=== PATIENT | female | born 1965 | race Caucasian/White ===

== ENCOUNTER 2018-04-06 03:31 | Emergency (ER) | payer BC, SELFPAY ==
[2018-04-06 03:34] VITALS: BP 133/84; PULSE 84; RESP 16; TEMP 36.5; O2SAT 100
[2018-04-06] MEDS: Lidocaine 5% Patch 1 PATCH TP (03:50)
[2018-04-06] MEDS: Acetaminophen 500 MG TAB 1000 MG PO (03:50)
[2018-04-06] MEDS: Diazepam 5 MG TAB PO (03:50)
[2018-04-06 04:05] LABS: Bilirubin Negative (Negative); Blood Moderate (Negative); Clarity Clear; Glucose Negative (Negative); Ketones Negative (Negative); Leukocyte Esterase Negative (Negative); Nitrite Negative (Negative); Specific Gravity >= 1.030 (1.005-1.025); Urobilinogen 0.2 EU/dL (Up TO 0.2); pH 5.5 (5-8)
[2018-04-06 04:12] LABS: Bacteria Rare HPF (Negative); C & S Indicated? No; Casts Negative LPF (Negative); Crystals Negative HPF (Negative); Epithelial Cells Rare HPF (Negative); Mucus Negative (Negative); WBC 0-2 HPF (0-5)
--- NOTE | 2018-04-06 04:16 | ED.GENADUL_ITS ---
Discharge Plan Disposition Patient Disposition: HOME Condition: Good Discharge Details Chief Complaint: Orthopedic Clinical Impression: Acute left flank pain Primary Care Provider: Jennifer Thurman ED Provider: Javier Campa Home Meds and New Rx's Prescriptions: New cyclobenzaprine 10 mg tablet 10 mg PO TID Qty: 30 RF: 0 acetaminophen [Mapap Extra Strength] 500 MG tablet 1,000 mg PO Q6H 5 Days Qty: 60 RF: 0 ibuprofen [Motrin IB] 200 MG tablet 600 mg PO Q6H 5 Days Qty: 60 RF: 0 hydrocodone-acetaminophen [[place]] 7.5-325 mg tablet 1 tab PO Q6H Qty: 5 RF: 0 No Action sertraline [Zoloft] 50 mg Tablet 1 tab PO DAILY RF: 0 citalopram 10 mg Tablet 10 mg PO PRN PRN (Reason: Anxiety) RF: 0 Discharge Instructions Instructions: Flank Pain (ED), Muscle Spasm (ED) Additional Instructions: Please take medications as directed. If you notice any worsening of your symptoms, or any new symptoms such as numbness or tingling in your groin, bowel or bladder incontinence, vomiting, diarrhea, fever, chills, shortness of breath, chest pain, numbness, weakness, or fainting , please return immediately to the emergency department for reevaluation. Please follow up with your primary care provider as soon as possible for reassessment and reevaluation. As always, it was a pleasure participating in your medical care today. Referrals: Jennifer Thurman [Primary Care Provider] - Medical Decision Making This is a 52-year-old female who presents with very atypical left hip/pelvic pain. Patient's pain began last night, it occurred while she was just sitting there. It is sharp and aching in nature and radiates to her groin which would be concerning for a urinary tract infection or urolithiasis however the patient's pain is a notable musculoskeletal component with reproducible tenderness over the left leg greater trochanter, improvement of symptoms with flexion of the hip worsening of symptoms with extension of the hip and external rotation. She has no history of kidney stones. Symptoms are certainly atypical. Differential includes a musculoskeletal component versus a kidney stone. We will evaluate with urinalysis, CT scan to evaluate for any fracture, kidney stone. We will Place Lidoderm patch, and give a muscle relaxant, as well as Tylenol. 5:[address] scan has returned and is negative for acute process. I did contact the radiologist who was no longer on shift, and instead spoke with the radiologist technical marketing consultant. I discussed the patient's clinical findings, he does not reevaluate for signs of small kidney stone, osseous abnormalities for the left hip, or other abnormalities. Upon their review they see no acute process or other acute abnormalities. Patient was given morphine and had near complete resolution of her symptoms however the pain has returned along afterwards. We did perform a laboratory workup and she does appear mildly dehydrated, but shows no other sign ificant abnormalities on lab. Patient now states that the pain radiates from her groin down her leg in the anterior component all the way to the calf. She denies any pain in her buttock, the posterior component. She has had sciatica in the past and states that this feels completely different than this. She describes it as a aching-like sensation. Repeat vascular exam continues to demonstrate brisk capillary refill, +2 dorsalis pedis and posterior tibial pulse bilaterally. Normal strength and movement aside for the previous aforementioned movements that worsen her pain. Patient's symptoms are notably atypical. Due to her persistent pain, the presentation, I did discuss with the patient going back for repeat CT scan to evaluate for potential though unlikely dissection. Family agrees with the plan for repeat imaging. We will get a CTA to rule out dissection or other acute vascular process. 7: 42 AM Reassessment the patient has near complete resolution of her symptoms after a dministration of Flexeril. We are still pending CTA results at this time. With complete resolution of her symptoms, if the CTA is negative I feel that she can be safely discharged home. Repeat clinical exam continues to show no signs of cauda equina syndrome, neurologic or vascular deficit of the lower extremities, acute surgical abdomen, or other significant abnormalities. I discussed with he r potential observation versus discharge and the patient feels ready to go home and is asking to go home. If the CT results are negative I feel she can be safely discharged with close follow-up with her PCP. Case will be signed out to my colleague Dr. Reynolds pending CT scan results. 8:[address] angios results are negative for acute process. Patient feeling much improved. Patient will be discharged with close follow-up. I spent greater than 15 minutes discussing return precautions and patient family understand. Patient feels comfortable with going home. I have extensively reviewed the treatment plan and discharge instructions with the patient and their family. I have addressed all patient concerns at this time. The patient and family was made aware of what symptoms to monitor for that would warrant a return to the emergency department. Discussed the plan with the patient and family, they demonstrate verbal understanding and agreement with our assessment and plan at this time. FINDINGS: Lower thorax: No acute findings. ABDOMEN: Liver: Normal. No mass. Gallbladder and bile ducts: Normal. No calcified stones. No ductal dilation. Pancreas: Normal. No ductal dilation. Spleen: Normal. No splenomegaly. Adrenals: Normal. No mass. Kidneys and ureters: Nonobstructing renal calculi. No obstructing urinary calculus or hydronephrosis. Stomach and bowel: Normal. No obstruction. No mucosal thickening. Appendix: No evidence of appendicitis. PELVIS: Bladder: Unremarkable as visualized. Reproductive: Unremarkable as visualized. ABDOMEN and PELVIS: Intraperitoneal space: Normal. No free air. No significant fluid collection. Bones/joints: No acute fracture. No dislocation. Soft tissues: Unremarkable. Vasculature: Normal. No abdominal aortic aneurysm. Lymph nodes: Normal. No enlarged lymph nodes. IMPRESSION: No acute finding. Thank you for allowing us to participate in the care of your patient. Dictated and Authenticated by: Valdo Mckeon MD COMPARISON: No relevant prior studies available. FINDINGS: Pulmonary arteries: There is no evidence for PE. Aorta: There is no evidence for thoracic aortic dissection or aneurysm. Lungs: Centrilobular emphysema is present. Pleural space: Normal. No pneumothorax. No pleural effusion. Heart: Normal. No cardiomegaly. No pericardial effusion. Lymph nodes: Unremarkable. No enlarged lymph nodes. Bones/joints: Unremarkable. No acute fracture. Soft tissues: Unremarkable. IMPRESSION: There is no evidence for thoracic aortic dissection or aneurysm. EXAM: CT Angiography Abdomen With Contrast EXAM DATE/TIME: 04/06/2018 5:50 AM CLINICAL HISTORY: 52 years old, female; Pain; Other: No chest pain; Other: Hip groin pain; Patient HX: Severe hip and groin pain worsening; Additional info: R/O dissection vs. Art comp. Images down through mid thigh per dr. Campa TECHNIQUE: Axial computed tomographic angiography images of the abdomen with intravenous contrast material, including non-contrast images if performed. MIP and/or 3D reconstructed images were created and reviewed. All CT scans at this facility use at least one of these dose optimization techniques: automated exposure control; mA and/or kV adjustment per patient size (includes targeted exams where dose is matched to clinical indication); or iterative reconstruction. CONTRAST: 85 ml of Omnipaque 350 administered intravenously. COMPARISON: No relevant prior studies available. FINDINGS: Lungs: Unremarkable. No consolidation. VASCULATURE: Aorta: There is no evidence for abdominal aortic aneurysm or dissection. Celiac trunk and mesenteric arteries: No occlusion or significant stenosis. Renal arteries: No occlusion or significant stenosis. Other arteries: No evidence for arterial compression ABDOMEN: Liver: Normal. No mass. Gallbladder and bile ducts: Normal. No calcified stones. No ductal dilation. Pancreas: Normal. No ductal dilation. Spleen: Normal. No splenomegaly. Adrenals: Normal. No mass. Kidneys and ureters: Normal. No hydronephrosis. Stomach and bowel: Unremarkable. No obstruction. No mucosal thickening. Intraperitoneal space: Unremarkable. No free air. No significant fluid collection. Bones/joints: Unremarkable. No acute fracture. No dislocation. Soft tissues: Unremarkable. Lymph nodes: Unremarkable. No enlarged lymph nodes. IMPRESSION: There is no evidence for abdominal aortic aneurysm or dissection. No evidence for arterial compression Dictated and Authenticated by: Dennis Ford MD. HPI General Date/Time Provider Initiated Documentation: 04/06/18 03:33 . HPI Narrative: This is a 52-year-old female with no significant past medical history who presents today for very atypical left hip and groin pain. 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 It gradually worsened throughout the night. Patient states that the pain goes from her left hip to her groin/genitals. She denies any vaginal discharge. The pain is better when the patient's hip is flexed at 90 degrees, also improved with movement, as well as improved with walking however it is worsened with external rotation at the hip and posterior movement of the hip. She denies any dysuria, hematuria or increase in urinary frequency. She denies any fever chills or vaginal discharge. She denies any trauma, fall, previous injury, previous fracture. She denies any numbness tingling or weakness. She denies any pain rating towards the thigh. She denies any history of kidney stones. She denies any systemic symptoms of fever, chills, vomiting or diarrhea. She has no other complaints or modifying factors at this time. She has taken Advil and Aleve this evening, however this is not improved her symptom. Related Data Home Medications Medication Instructions Recorded Confirmed acetaminophen [Mapap Extra 1,000 mg PO Q6H 5 Days #60 tab 04/06/18 Strength] citalopram 10 mg PO PRN PRN 04/06/18 04/06/18 cyclobenzaprine 10 mg PO TID #30 tab 04/06/18 hydrocodone-acetaminophen [[place]] 1 tab PO Q6H #5 tab 04/06/18 ibuprofen [Motrin Ib] 600 mg PO Q6H 5 Days #60 tab 04/06/18 sertraline [Zoloft] 1 tab PO DAILY 04/06/18 04/06/18 Previous Rx's Medication Instructions Recorded acetaminophen [Mapap Extra 1,000 mg PO Q6H 5 Days #60 tab 04/06/18 Strength] cyclobenzaprine 10 mg PO TID #30 tab 04/06/18 hydrocodone-acetaminophen [[place]] 1 tab PO Q6H #5 tab 04/06/18 ibuprofen [Motrin Ib] 600 mg PO Q6H 5 Days #60 tab 04/06/18 Allergies Allergy/AdvReac Type Severity Reaction Status Date / Time acetaminophen [From Percocet] AdvReac Intermediate Nausea Unverified 04/06/18 03:37 oxycodone [From Percocet] AdvReac Intermediate Nausea Unverified 04/06/18 03:37 General Stated Complaint: Orthopedic MINA: 3 Review of Systems Review of Systems All systems reviewed & are unremarkable except as noted in HPI and below PFSH Social History Smoking and Tabacco status: Current every day Exam Narrative Exam Narrative: 1.Const: Well-nourished, Well-developed, appearing stated age 2.Eyes: PERRL, no conjunctival injection, and symmetrical lids. 3.ENT: Atraumatic external nose and ears. Moist MM. Neck: Symmetric, trachea midline, No thyromegaly. 4.CVS: +S1/S2, No murmurs or gallops. Peripheral pulses 2+ and equal in all extremities. Brisk capillary refill in all extremities. 5.RESP: Unlabored respiratory effort. Clear to auscultation bilaterally. No wheezes rales or rhonchi 6.GI: Soft, Nontender/Nondistended, No hepatosplenomegaly. No guarding or rebound. 7.MSK: Normocephalic/Atraumatic, Extremities w/o deformity or ttp No cyanosis or clubbing, the patient demonstrates slight reproducible pain on palpation of her greater trochanter on the left. Worsening of pain with external rotation of the hip, is also worsening of pain with extension of the left hip improvement of the pain with flexion of the left hip. Palpation of the buttocks reveals no tenderness over the gluteus fe, minimus, or piriformis. Normal sensation throughout for the lower extremities, normal strength throughout. No midline tenderness to palpation over the CTLS spine. Normal ROM in flexion, extension, side bend, and rotation. Patient has +5 out of 5 strength in the lower extremities in dorsiflexion and plantarflexion, knee flexion and extension, hip flexion and extension. There is +2 over 2 dorsalis pedis pulses bilaterally. There is normal sensation to the skin with light touch at the foot, knee, and hip. Normal saddle sensation. Good sensation over the deep sural nerve area bilaterally. Rectal exam deferred. Reflexes are +2 over 4 in the patellar reflex bilaterally. +5 out of 5 strength in the medial, ulnar, radial nerve distribution bilaterally in the hands as well as intact light touch sensation to these dermatomes on the hands 8.Skin: Warm, Dry. No rashes or lesions. 9.Neuro: load out person II-XII grossly intact. Sensation grossly intact, no focal neurologic deficits. 10.Psych: (AAO) x3. Appropriate mood and affect Course Vital Signs Temperature 36.5 C 04/06/18 03:34 Pulse 84 04/06/18 03:34 Respiratory Rate 16 04/06/18 03:34 Blood Pressure 133/84 04/06/18 03:34 Pulse Oximetry 100 04/06/18 03:34 Temperature 36.5 C 04/06/18 03:34 Temperature Source Temporal Artery Scan 04/06/18 03:34 Pulse 84 04/06/18 03:34 Respiratory Rate 16 04/06/18 03:34 Respiratory Effort 04/06/18 03:39 Blood Pressure 133/84 04/06/18 03:34 Blood Pressure Position Standing 04/06/18 03:34 Pulse Oximetry 100 04/06/18 03:34 Oxygen Delivery Method Room Air 04/06/18 03:34 Oxygen Flow Rate 0 04/06/18 03:34 Pain Level 10 04/06/18 03:34 Lab/Test Results Lab/Test Results: Laboratory Tests Range/Units 04/06/18 03:45 Urine Color (Yellow) Yellow Urine Clarity Clear Urine pH (5-8) 5.5 Ur Specific [place] (1.005-1.025) >= 1.030 H Urine Protein (Negative) mg/dL Negative Urine Ketones (Negative) mg/dL Negative Urine Blood (Negative) Moderate H Urine Nitrite (Negative) Negative Urine Bilirubin (Negative) Negative Urine Urobilinogen (Up TO 0.2) EU/dL 0.2 Ur Leukocyte Esterase (Negative) Negative Urine RBC (0-2) 5-10 H Urine WBC (0-5) HPF 0-2 Ur Epithelial Cells (Negative) HPF Rare Urine Crystals (Negative) HPF Negative Urine Bacteria (Negative) HPF Rare Urine Casts (Negative) LPF Negative Urine Mucus (Negative) Negative Urine Other Car Lubricator Ur Culture Indicated? No Urine Glucose (Negative) mg/dL Negative
--- NOTE | 2018-04-06 04:20 | DI.CT_ITS ---
SYMPTOM/DIAGNOSIS: SEVERE LT HIP AND GROIN PAIN, ? DISSECTION VS AR COMP. ABDOMEN AND PELVIC CT: A noncontrast CT scan of the abdomen and pelvis was performed. Comparison is made with 05/04/10. The visualized lung bases are clear. Lack of IV contrast does limit evaluation of the abdominal and pelvic organs. The unenhanced liver, gallbladder, bile ducts, pancreas, spleen and adrenal glands are unremarkable. There are bilateral non obstructing renal calculi. The urinary bladder is intact. The reproductive organs are unremarkable. The bowel shows no evidence of obstruction or inflammation. No findings to suggest an acute appendicitis are present. The abdominal aorta is of normal caliber. No significant abdominal or pelvic adenopathy, ascites or pneumoperitoneum is present. No acute abnormality is seen in the bones. IMPRESSION: No evidence of an acute abdomen. CTA OF CHEST, ABDOMEN AND PELVIS: CT angiography was performed with multi slice acquisition and multi planar and 3D reconstruction. Comparison is made with earlier in the day. ABDOMEN AND PELVIS: The abdominal aorta is of normal caliber. No evidence of dissection is seen. The celiac axis, superior mesenteric and inferior mesenteric arteries are unremarkable. The renal arteries have a normal appearance. The liver is normal in size. No suspicious mass is seen. The portal and superior mesenteric veins and splenic veins appear patent. The gallbladder is negative. No biliary ductal dilatation is seen. The pancreas, spleen and adrenal glands are unremarkable. The kidneys show normal and symmetric enhancement. No suspicious solid renal mass or obstruction is identified. Non obstructing stones are seen bilaterally in the kidneys. There is a small cyst seen in the right kidney. The urinary bladder is intact. The reproductive organs are unremarkable. The bowel shows no evidence of obstruction or inflammation. No findings to suggest an acute appendicitis are present. No significant abdominal or pelvic adenopathy, ascites or pneumoperitoneum is seen. The bones are intact. IMPRESSION: No evidence of abdominal or pelvic arterial injury. No evidence of an acute abdomen. CHEST: The thoracic aorta is of normal caliber. No evidence of dissection or aneurysm. Heart size is within normal limits. No significant pericardial effusion is seen. The visualized pulmonary arteries show no filling defects to suggest embolic disease. No significant thoracic adenopathy is appreciated. No pleural effusion or pneumothorax is identified. Moderately severe emphysematous changes are present in the lungs. No focal consolidating infiltrates are seen. The tracheobronchial tree is unremarkable. The thoracic spine appears intact. IMPRESSION: No evidence of a thoracic aneurysm or dissection.
--- NOTE | 2018-04-06 04:26 | NUR.NOTE ---
Nursing Note: Acetaminophen 1,000mg & Diazepam 5mg given PO @ 0350. 1 Lidocaine 5% patch applied to left outer buttock. Unable to save on [facility] due to technical error message- ticket submitted to [facility].
--- NOTE | 2018-04-06 04:39 | DI.VRAD_ITS ---
EXAM: CT Abdomen and Pelvis Without Contrast EXAM DATE/TIME: 04/06/2018 3:45 AM CLINICAL HISTORY: 52 years old, female; Pain; Other: Left hip and groin pain; Patient HX: Left hip and groin pain starting yesterday and more severe now. TECHNIQUE: Axial computed tomography images of the abdomen and pelvis without contrast. All CT scans at this facility use at least one of these dose optimization techniques: automated exposure control; mA and/or kV adjustment per patient size (includes targeted exams where dose is matched to clinical indication); or iterative reconstruction. Coronal and sagittal reformatted images were created and reviewed. COMPARISON: No relevant prior studies available. FINDINGS: Lower thorax: No acute findings. ABDOMEN: Liver: Normal. No mass. Gallbladder and bile ducts: Normal. No calcified stones. No ductal dilation. Pancreas: Normal. No ductal dilation. Spleen: Normal. No splenomegaly. Adrenals: Normal. No mass. Kidneys and ureters: Nonobstructing renal calculi. No obstructing urinary calculus or hydronephrosis. Stomach and bowel: Normal. No obstruction. No mucosal thickening. Appendix: No evidence of appendicitis. PELVIS: Bladder: Unremarkable as visualized. Reproductive: Unremarkable as visualized. ABDOMEN and PELVIS: Intraperitoneal space: Normal. No free air. No significant fluid collection. Bones/joints: No acute fracture. No dislocation. Soft tissues: Unremarkable. Vasculature: Normal. No abdominal aortic aneurysm. Lymph nodes: Normal. No enlarged lymph nodes. IMPRESSION: No acute finding. Dictated and Authenticated by: Valdo Mckeon MD. Ordering:SHAILESH Herrera MD
[2018-04-06] MEDS: Ondansetron 4 MG/2 ML VIAL IVP (04:50)
[2018-04-06] MEDS: MORPHine 10 MG/ML VIAL 4 MG IVP ×2 (04:51→05:45)
[2018-04-06 05:02] LABS: Abs Immature Grans 0.02 k/cumm (0.0-0.09); Absolute Basophil Count 0.02 k/cumm (0.0-0.2); Absolute Eosinophil Count 0.07 k/cumm (0.0-0.7); Absolute Monocyte Count 0.65 k/cumm (0.11-0.7); Absolute Neutrophil Count 9.24 k/cumm (1.2-6.7); Basophils % 0.2; Eosinophils % 0.6; HCT 43.8 % (36.0-46.0); HGB 14.6 g/dL (12.0-15.5); Immature Grans % 0.2; Mean Corp. HGB Concentration 33.3 g/dL (32.0-36.0); Mean Corpuscular Hemoglobin 31.7 pg (27.0-33.0); Mean Platelet Volume 11.2 fL (8.0-11.0); Monocytes % 5.3; Neutrophils % 75.7; Platelet Count 256 x1000/uL (130-400); RBC 4.61 m/cumm (4.00-5.20); RBC Distribution Width 12.1 % (11.7-14.6); White Blood Cell Count 12.21 k/cumm (4.4-10.8)
[2018-04-06 05:05] VITALS: BP 110/79; PULSE 60; RESP 16; TEMP 36.4; O2SAT 95
[2018-04-06 05:18] LABS: ALT 20 U/L (12-78); AST 7 U/L (15-37); Albumin 4.3 g/dL (3.4-5.0); Alkaline Phosphatase 88 U/L (46-116); Anion Gap 8.1 mmol/L (3-11); BUN 21 mg/dL (7-18); Bilirubin, Total 0.2 mg/dL (0.2-1.0); CO2 27.9 mmol/L (21.0-32.0); CREATININE 0.94 mg/dL (0.55-1.02); Calcium 9.2 mg/dL (8.5-10.1); Chloride 103 mmol/L (98-107); Glucose 107 mg/dL (70-100); Potassium 4.3 mmol/L (3.5-5.1); Sodium 139 mmol/L (136-145); Total Protein 7.3 g/dL (6.4-8.2)
[2018-04-06] MEDS: Normal Saline 1,000 ML 1000 ML IV (05:34)
[2018-04-06] MEDS: Cyclobenzaprine 10 MG TAB PO (05:44)
[2018-04-06] MEDS: Omnipaque 350 MG/ML 100 ML BTL IJ (06:27)
[2018-04-06] MEDS: Normal Saline Flush 10 ML SYR IVP (06:30)
--- NOTE | 2018-04-06 08:01 | DI.VRAD_ITS ---
EXAM: CT Angiography Chest With Contrast EXAM DATE/TIME: 04/06/2018 5:50 AM CLINICAL HISTORY: 52 years old, female; Pain; Other: No chest pain; Other: Hip groin pain; Patient HX: Severe hip and groin pain worsening; Additional info: R/O dissection vs. Art comp. Images down through mid thigh per dr. Campa TECHNIQUE: Axial computed tomographic angiography images of the chest with intravenous contrast using CT angiography protocol. All CT scans at this facility use at least one of these dose optimization techniques: automated exposure control; mA and/or kV adjustment per patient size (includes targeted exams where dose is matched to clinical indication); or iterative reconstruction. MIP reconstructed images were created and reviewed. CONTRAST: 85 ml of Omnipaque 350 administered intravenously. COMPARISON: No relevant prior studies available. FINDINGS: Pulmonary arteries: There is no evidence for PE. Aorta: There is no evidence for thoracic aortic dissection or aneurysm. Lungs: Centrilobular emphysema is present. Pleural space: Normal. No pneumothorax. No pleural effusion. Heart: Normal. No cardiomegaly. No pericardial effusion. Lymph nodes: Unremarkable. No enlarged lymph nodes. Bones/joints: Unremarkable. No acute fracture. Soft tissues: Unremarkable. IMPRESSION: There is no evidence for thoracic aortic dissection or aneurysm. EXAM: CT Angiography Abdomen With Contrast EXAM DATE/TIME: 04/06/2018 5:50 AM CLINICAL HISTORY: 52 years old, female; Pain; Other: No chest pain; Other: Hip groin pain; Patient HX: Severe hip and groin pain worsening; Additional info: R/O dissection vs. Art comp. Images down through mid thigh per dr. Campa TECHNIQUE: Axial computed tomographic angiography images of the abdomen with intravenous contrast material, including non-contrast images if performed. MIP and/or 3D reconstructed images were created and reviewed. All CT scans at this facility use at least one of these dose optimization techniques: automated exposure control; mA and/or kV adjustment per patient size (includes targeted exams where dose is matched to clinical indication); or iterative reconstruction. CONTRAST: 85 ml of Omnipaque 350 administered intravenously. COMPARISON: No relevant prior studies available. FINDINGS: Lungs: Unremarkable. No consolidation. VASCULATURE: Aorta: There is no evidence for abdominal aortic aneurysm or dissection. Celiac trunk and mesenteric arteries: No occlusion or significant stenosis. Renal arteries: No occlusion or significant stenosis. Other arteries: No evidence for arterial compression ABDOMEN: Liver: Normal. No mass. Gallbladder and bile ducts: Normal. No calcified stones. No ductal dilation. Pancreas: Normal. No ductal dilation. Spleen: Normal. No splenomegaly. Adrenals: Normal. No mass. Kidneys and ureters: Normal. No hydronephrosis. Stomach and bowel: Unremarkable. No obstruction. No mucosal thickening. Intraperitoneal space: Unremarkable. No free air. No significant fluid collection. Bones/joints: Unremarkable. No acute fracture. No dislocation. Soft tissues: Unremarkable. Lymph nodes: Unremarkable. No enlarged lymph nodes. IMPRESSION: There is no evidence for abdominal aortic aneurysm or dissection. No evidence for arterial compression Dictated and Authenticated by: Dennis Ford MD. Ordering:SHAILESH Herrera MD
[2018-04-06 08:18] VITALS: BP 113/54; PULSE 49; RESP 12; TEMP 36.6; O2SAT 99
== END 2018-04-06 08:20 | disposition home or self-care (01) ==
PROVIDERS: Emergency Provider Student in an Organized Health Care Education/Training Program; PCP Nurse Practitioner
DX: M25.552 Pain in left hip (principal); R10.32 Left lower quadrant pain; E86.0 Dehydration
CPT/HCPCS: 36415; 71275; 74175; 80053; 96361; 96374; 96375; 96376; 99285; 74176; 81003; 81015; 85025; 99284; J2270; J2405; J3490

== ENCOUNTER 2018-05-03 09:08 | Emergency (ER) | payer BC, SELFPAY ==
[2018-05-03] VITALS (10 sets, daily range): BP systolic 113–119; BP diastolic 66–82; PULSE 58–83; RESP 16–20; TEMP 36.1–36.8; O2SAT 94–100
--- NOTE | 2018-05-03 09:41 | W.ED.GENAD ---
Discharge Plan Disposition Patient Disposition: HOME Condition: Improving Discharge Details Chief Complaint: FlankPain Clinical Impression: Nephrolithiasis, Vasovagal syncope Primary Care Provider: Jennifer Thurman ED Provider: Brenda Lennon Home Meds and New Rx's Prescriptions: New tamsulosin [Flomax] 0.4 mg capsule 0.4 mg PO DAILY 10 Days Qty: 10 RF: 0 hydrocodone-acetaminophen 5-325 mg tablet 1 tab PO Q6H PRN (Reason: pain) Qty: 7 RF: 0 Continued sertraline [Zoloft] 50 mg Tablet 1 tab PO DAILY RF: 0 acetaminophen [Tylenol Arthritis Pain] 650 mg Tablet Extended Release 2 tab PO PRN PRNRF: 0 Discharge Instructions Instructions: Kidney Stones (ED), Syncope (ED) Additional Instructions: Drink plenty of water to help with flushing your kidneys. Take the Flomax as directed. Alternate Tylenol and Motrin as needed and directed for pain. Take the vicodin for pain not relieved with Tylenol or Motrin. Be careful while taking the Vicodin as it has Tylenol in it. Limit your amount of Tylenol to no more than 3000 mg daily. You will receive a call from care management regarding a follow-up appointment with urology. Return immediately to the emergency department any worsening or new concerning symptoms. Discharge Data Discharge Physician: Brenda Lennon Medical Decision Making 52yo female with a history of anxiety and depression who presents with right flank pain with radiation to right groin since last night. Pt is post-menopausal. She was found to have bilateral renal calculi on CT abdomen and pelvis for an unrelated complaint 1 month ago. Vitals within normal limits. Patient appears nontoxic. She has right CVA tenderness. Abdomen soft and nontender. Will place an IV, labs, urinalysis, fluids, CT renal colic and give a dose of Toradol and Zofran and reassess. 1030 --patient feels much better. Pain is significantly improved. CT notes a 2 mm stone in the right UVJ. Labs reviewed and noted a white blood cell count of 12, normal creatinine, UA notes 10-20 WBCs, moderate bacteria, few epis, negative leukocyte and negative nitrite. 1045 --discussed with Dr. Arteaga -with follow-up with patient as an outpatient. Will give a dose of Flomax here and send with prescription. Patient was instructed to alternate Tylenol and Motrin for pain. She is requesting stronger pain medication upon discharge if pain worsens. She states she has tolerated hydrocodone in the past. Will place patient on care management list to help arrange for an appointment with urology within the next week. She is instructed return here immediately with any worsening symptoms. Patient's syncopal episode just prior to arrival was at the onset of significant pain and appears likely consistent with vasovagal syncope. An EKG was done which noted a rate of 54, sinus and no acute ST findings. Medical Records Medical records reviewed: Yes I reviewed the patient's medical records. Lab Data Lab results reviewed: Yes I reviewed the patient's lab results. 05/03/18 10:03 Urine - Reflex from Ua Urine Culture - Pending Laboratory Tests Range/Units 05/03/18 05/03/18 05/03/18 09:48 09:48 10:03 WBC (4.4-10.8) k/cumm 12.51 H RBC (4.00-5.20) m/cumm 4.46 Hgb (12.0-15.5) g/dL 14.1 Hct (36.0-46.0) % 42.0 MCV (80-95) fL 94.2 MCH (27.0-33.0) pg 31.6 MCHC (32.0-36.0) g/dL 33.6 RDW (11.7-14.6) % 12.5 Plt Count (130-400) x1000/uL 274 MPV (8.0-11.0) fL 10.9 Immature Gran % 0.2 Neutrophils % 85.8 Lymphocytes % 9.6 Monocytes % 3.9 Eosinophils % 0.3 Basophils % 0.2 Absolute Neutrophils (1.2-6.7) k/cumm 10.73 H Absolute Lymphocytes (1.2-3.4) k/cumm 1.20 Absolute Monocytes (0.11-0.7) k/cumm 0.49 Absolute Eosinophils (0.0-0.7) k/cumm 0.04 Absolute Basophils (0.0-0.2) k/cumm 0.03 Sodium (136-145) mmol/L 140 Potassium (3.5-5.1) mmol/L 4.1 Chloride (98-107) mmol/L 103 Carbon Dioxide (21.0-32.0) mmol/L 28.1 Anion Gap (3-11) mmol/L 8.9 BUN (7-18) mg/dL 16 Creatinine (0.55-1.02) mg/dL 0.91 Estimated GFR/1.73 m2 (mL/min/1.73m2) >= 60.00 Glucose (70-100) mg/dL 119 H Calcium (8.5-10.1) mg/dL 9.0 Total Bilirubin (0.2-1.0) mg/dL 0.3 AST (15-37) U/L 11 L ALT (12-78) U/L 20 Alkaline Phosphatase (46-116) U/L 75 Total Protein (6.4-8.2) g/dL 6.8 Albumin (3.4-5.0) g/dL 3.8 Urine Color (Yellow) Yellow Urine Clarity Clear Urine pH (5-8) 6.5 Ur Specific [place] (1.005-1.025) 1.025 Urine Protein (Negative) mg/dL Negative Urine Ketones (Negative) mg/dL Negative Urine Blood (Negative) Moderate H Urine Nitrite (Negative) Negative Urine Bilirubin (Negative) Negative Urine Urobilinogen (Up TO 0.2) EU/dL 0.2 Ur Leukocyte Esterase (Negative) Negative Urine RBC (0-2) >50 H Urine WBC (0-5) HPF 10-20 Ur Epithelial Cells (Negative) HPF Few Urine Crystals (Negative) HPF Negative Urine Bacteria (Negative) HPF Moderate Urine Casts (Negative) LPF Negative Urine Mucus (Negative) Trace Ur Culture Indicated? Yes Urine Glucose (Negative) mg/dL Negative ECG Data Attestation: I personally reviewed and interpreted this ECG (s) as follows: Interpretation: Rate of 54, sinus, no acute ST elevation or depression. QTc 430. QRS 92. HPI General Mode of arrival: ambulatory. Date/Time Provider Initiated Documentation: 05/03/18 09:16. Limitations to Documentation: no limitations. Information obtained by: patient. HPI Narrative: Patient is a 52-year-old female who presents with right flank pain since last night. Patient states her pain radiates into her right groin. She states the pain was 10/10 this morning, and is now somewhat improved. Patient states she passed out in the car due to the severe pain just prior to arrival in the parking lot. She denies any injury when this occurred. Patient states she was seen here last month for back pain and was found to have bilateral renal calculi. She denies any known history of kidney stones. She states yesterday her urine was pink but denies any dysuria, urinary frequency or urgency. She admits to nausea but denies any vomiting. She denies any fever, injury, leg pain, rash. Related Data Home Medications Medication Instructions Recorded Confirmed sertraline [Zoloft] 1 tab PO DAILY 04/06/18 05/03/18 acetaminophen [Tylenol Arthritis 2 tab PO PRN PRN 05/03/18 05/03/18 Pain] hydrocodone-acetaminophen 1 tab PO Q6H PRN #7 tab 05/03/18 tamsulosin [Flomax] 0.4 mg PO DAILY 10 Days #10 cap 05/03/18 Previous Rx's Medication Instructions Recorded hydrocodone-acetaminophen 1 tab PO Q6H PRN #7 tab 05/03/18 tamsulosin [Flomax] 0.4 mg PO DAILY 10 Days #10 cap 05/03/18 Allergies Allergy/AdvReac Type Severity Reaction Status Date / Time acetaminophen [From Percocet] AdvReac Intermediate Nausea Unverified 05/03/18 09:14 oxycodone [From Percocet] AdvReac Intermediate Nausea Unverified 05/03/18 09:14 General Stated Complaint: FlankPain MINA: 3 Review of Systems Review of Systems All systems reviewed & are unremarkable except as noted in HPI and below Constitutional Reports as per HPI, Denies chills and Denies fever(s) Eyes Denies blurry vision ENT Denies dizziness, Denies sore throat and Denies throat swelling Cardiovascular Denies chest pain and Denies dyspnea Respiratory Denies cough and Denies dyspnea Gastrointestinal Denies abdominal pain, Denies diarrhea, Reports nausea and Denies vomiting Genitourinary Denies hematuria, Denies dysuria and Reports flank pain Musculoskeletal Denies back pain and Denies numbness Integumentary/Breasts Denies lesions and Denies rash Neurologic Denies dizziness, Denies focal weakness and Denies numbness Allergic/Immunologic Denies throat swelling [facility] Medical History Lumbar disc herniation (Acute) Anxiety (Chronic) Depression (Chronic) Surgical History H/O shoulder surgery (Chronic) Social History Smoking and Tabacco status: Current every day alcohol intake: current alcohol intake frequency: a few times a month substance use type: does not use Exam Const General: cooperative, healthy appearing and no acute distress HENMT Head: normal to inspection Face and sinus: normal facial exam Eyes General: appearance normal, both eyes and all related structures Pupils: PERRL EOM: EOM intact bilaterally Neck Neck: normal visual inspection and No submandibular swelling Lymphatic: no lymphadenopathy noted Chest Chest: normal inspection of the chest and no tenderness Resp Effort & Inspection: normal respiratory effort and able to speak in complete sentences Auscultation: clear to auscultation bilaterally Cardio Rate: regular rate Rhythm: regular rhythm GI Inspection: normal to inspection Palpation: soft, not firm, not rigid and nontender Auscultation: normal bowel sounds Back/Spine/Pelvis Back: CVA tenderness (Right side) Thoracic/Lumbar Spine: thoracic and lumbar spine normal to inspection Skin General skin exam: no rashes or lesions noted Neuro General: alert, awake and oriented x3 Cognition: normal cognition Speech: speech normal Motor: muscle tone normal throughout Sensory Exam: no sensory deficits noted Extrem General: normal to inspection, full ROM, normal capillary refill, no calf tenderness bilaterally and no edema Psych Appearance: grossly normal Mental Status: mental status grossly normal Speech and Movement: speech and movement normal Affect: normal affect Course Vital Signs Temperature 98.2 F 05/03/18 09:12 Pulse 83 05/03/18 09:12 Respiratory Rate 20 05/03/18 09:12 Blood Pressure 113/79 05/03/18 09:12 Pulse Oximetry 97 05/03/18 09:12 Temperature 98.2 F 05/03/18 09:12 Temperature Source Temporal Artery Scan 05/03/18 09:12 Pulse 83 05/03/18 09:12 Respiratory Rate 20 05/03/18 09:12 Respiratory Effort Non-Labored 05/03/18 09:12 Blood Pressure 113/79 05/03/18 09:12 Blood Pressure Position Sitting 05/03/18 09:12 Pulse Oximetry 97 05/03/18 09:12 Oxygen Delivery Method Room Air 05/03/18 09:12 Oxygen Flow Rate 0 05/03/18 09:12 Pain Level 10 05/03/18 09:12
--- NOTE | 2018-05-03 09:44 | DI.CT_ITS ---
SYMPTOMS/DIAGNOSIS: RT FLANK PAIN, H/O RENAL CALCULI, ? NEPHROLITHIASIS CT SCAN OF THE ABDOMEN AND PELVIS: Renal colic CT was performed according to protocol. Comparison is 04/06/18. The visualized lung bases are clear. Lack of IV contrast does limit evaluation of the abdominal and pelvic organs. The unenhanced visualized portions of the liver, spleen, pancreas, gallbladder, bile ducts and adrenal glands are grossly unremarkable. There are two nonobstructing stones seen in the lower pole of the left kidney. The larger measures 0.4 cm. No ureterolithiasis or hydronephrosis is present on the left. There is a 1 mm nonobstructing stone in the lower pole of the right kidney. There is a 2 mm stone at the right ureterovesical junction causing moderate severe hydronephrosis. The urinary bladder is intact. The reproductive organs are unremarkable. There is atherosclerosis of the abdominal aorta but no aneurysmal dilatation. No significant abdominal or pelvic adenopathy, ascites or pneumoperitoneum is seen. The bowel shows no evidence of obstruction or inflammation. No findings to suggest an acute appendicitis are present. No acute osseous abnormality is identified. IMPRESSION: 1. 2 mm right UVJ stone causing moderate hydronephrosis. 2. Bilateral nephrolithiasis. The findings were discussed with the emergency department on the date of the examination.
[2018-05-03] MEDS: Normal Saline Flush 10 ML SYR IVP (09:48)
[2018-05-03] MEDS: Normal Saline 1,000 ML 1000 ML IV (09:57)
[2018-05-03 10:02] LABS: Abs Immature Grans 0.02 k/cumm (0.0-0.09); Absolute Basophil Count 0.03 k/cumm (0.0-0.2); Absolute Eosinophil Count 0.04 k/cumm (0.0-0.7); Absolute Monocyte Count 0.49 k/cumm (0.11-0.7); Absolute Neutrophil Count 10.73 k/cumm (1.2-6.7); Basophils % 0.2; Eosinophils % 0.3; HGB 14.1 g/dL (12.0-15.5); Immature Grans % 0.2; Lymphocytes % 9.6; Mean Corp. HGB Concentration 33.6 g/dL (32.0-36.0); Mean Corpuscular Hemoglobin 31.6 pg (27.0-33.0); Mean Corpuscular Volume 94.2 fL (80-95); Mean Platelet Volume 10.9 fL (8.0-11.0); Monocytes % 3.9; Neutrophils % 85.8; Platelet Count 274 x1000/uL (130-400); RBC 4.46 m/cumm (4.00-5.20); RBC Distribution Width 12.5 % (11.7-14.6); White Blood Cell Count 12.51 k/cumm (4.4-10.8)
[2018-05-03 10:16] LABS: Bilirubin Negative (Negative); Blood Moderate (Negative); Clarity Clear; Glucose Negative (Negative); Ketones Negative (Negative); Leukocyte Esterase Negative (Negative); Nitrite Negative (Negative); Specific Gravity 1.025 (1.005-1.025); Urobilinogen 0.2 EU/dL (Up TO 0.2); pH 6.5 (5-8)
[2018-05-03 10:20] LABS: ALT 20 U/L (12-78); AST 11 U/L (15-37); Albumin 3.8 g/dL (3.4-5.0); Alkaline Phosphatase 75 U/L (46-116); Anion Gap 8.9 mmol/L (3-11); BUN 16 mg/dL (7-18); Bilirubin, Total 0.3 mg/dL (0.2-1.0); CO2 28.1 mmol/L (21.0-32.0); CREATININE 0.91 mg/dL (0.55-1.02); Chloride 103 mmol/L (98-107); Glucose 119 mg/dL (70-100); Potassium 4.1 mmol/L (3.5-5.1); Sodium 140 mmol/L (136-145); Total Protein 6.8 g/dL (6.4-8.2)
[2018-05-03] MEDS: Ondansetron 4 MG/2 ML VIAL IVP (10:27)
[2018-05-03] MEDS: Ketorolac 30 MG/ML VIAL IVP (10:27)
[2018-05-03 10:37] LABS: Bacteria Moderate HPF (Negative); Casts Negative LPF (Negative); Crystals Negative HPF (Negative); Epithelial Cells Few HPF (Negative); Mucus Trace (Negative); RBC >50 (0-2)
[2018-05-03 10:38] LABS: C & S Indicated? Yes
[2018-05-03] MEDS: Tamsulosin 0.4 MG CAPCR PO (11:00)
--- NOTE | 2018-05-03 14:24 | PDOC.ERCMPRO ---
Care Management Progress Note 05/03-Dr. Lennon requested assistance with a urology f/u for kidney stones. Dr. Arteaga aware of patient. Referral faxed to Urology this afternoon.
== END 2018-05-03 11:35 | disposition home or self-care (01) ==
PROVIDERS: Emergency Provider Physician Assistant; PCP Nurse Practitioner
DX: R55 Syncope and collapse (principal); N20.0 Calculus of kidney; Z87.442 Personal history of urinary calculi
CPT/HCPCS: 80053; 96360; 96375; 99285; 74176; 81003; 81015; 85025; 87086; 99284; J1885; J2405

== ENCOUNTER 2018-12-18 13:05 | Emergency (ER) | payer BC, SELFPAY ==
[2018-12-18 13:12] VITALS: PULSE 88; RESP 18; TEMP 36.6; O2SAT 94
[2018-12-18 13:55] VITALS: RESP 18
[2018-12-18] MEDS: Albuterol/Ipratropium 3 ML UPD VIAL UPD (13:55)
[2018-12-18 14:06] VITALS: PULSE 64; RESP 1; RESP 16; O2SAT 93
--- NOTE | 2018-12-18 14:11 | ED.GENADUL_ITS ---
Discharge Plan Disposition Patient Disposition: HOME Condition: Good Discharge Details Chief Complaint: RespSymp Clinical Impression: Upper respiratory infection, Bronchitis Primary Care Provider: Jennifer Thurman ED Provider: Bailey Caruso Home Meds and New Rx's Prescriptions: New azithromycin 250 mg tablet See Rx Instructions .ROUTE .COMPLEX Qty: 6 RF: 0 albuterol sulfate [Proventil HFA] 90 mcg/actuation HFA aerosol inhaler 2 puff IH Q6H PRN (Reason: shortness of breath or wheezing) Qty: 8 RF: 0 benzonatate [Tessalon Perles] 100 mg capsule 100 mg PO TID PRN (Reason: cough) Qty: 10 RF: 0 No Action sertraline [Zoloft] 50 mg Tablet 1 tab PO DAILY RF: 0 citalopram [Celexa] 10 mg Tablet 10 mg PO DAILY RF: 0 cholecalciferol (vitamin D3) [Vitamin D3] 1,000 unit Capsule RF: 0 rosuvastatin [Crestor] 10 mg Tablet 20 mg PO DAILY RF: 0 vitamin H05-[id number] acid 1,000-400 mcg Lozenge SUBLINGUAL RF: 0 Discharge Instructions Instructions: Acute Bronchitis (ED) Additional Instructions: Drink plenty of fluids. Next and consider humidifier by bedside. Increase vitamin C. Use Tylenol for soreness if needed. Use inhaler as prescribed as well as antibiotic. Rest activities as tolerated. Recheck with primary care doctor if not improving in the next 2 to 3 days. Return sooner for any worsening or concerns if needed or for alarming symptoms as discussed Discharge Data Discharge Date/Time-TO BE ENTERED AT DEPARTURE: 12/18/18 14:27 Medical Decision Making This is a 53-year-old woman who presents for 1 week of viral type symptoms. Began with nasal congestion, sore throat and coughing. Patient reports cough is now more bothersome, increasing malaise and ill feeling. No measured fever but does report cough is worsening associated with mild wheezing. Patient offered chest x-ray to rule out pneumonia however declines at this time would prefer antibiotic treatment and avoidance of radiation. Patient was provided a DuoNeb which did reportedly significantly improve her symptoms. Patient will be provided antibiotic, inhaler as well as cough medication for home. Patient provided azithromycin. In conjunction with citalopram she is previously prescribed this is a risk of QTC prolongation however previous EKG does not reveal any QTC prolongation. The patient was stable and requested discharge. Prior to discharge, my usual and customary return precautions were reviewed with the patient - this included follow-up instructions and reasons to return to the Emergency Department if conditions worsens, does not improve as expected, or other new concerns arise. HPI General Date/Time Provider Initiated Documentation: 12/18/18 13:47 . HPI Narrative: This is a 53-year-old woman who presents to the emergency room for 1 week of illness. Patient reports 1 week of nasal congestion, bilateral ear pain, sinus pain and pressure, sore throat and cough. productive cough present, reportedly green sputum. Patient reports wheezing and coughing fits which are quite bothersome. Patient having difficulty catching her breath. Patient denies associated chest or back pain. Denies abdominal pain, nausea, vomiting or diarrhea. Patient does admit to widespread body ache and mild fatigue. No measured fever or chills. Patient is concerned with the possibility of pneumoni a given her persistence of illness.. Related Data Home Medications Medication Instructions Recorded Confirmed sertraline [Zoloft] 1 tab PO DAILY 04/06/18 12/18/18 albuterol sulfate [Proventil HFA] 2 puff IH Q6H PRN #8 gm 12/18/18 azithromycin See Rx Instructions .ROUTE 12/18/18 .COMPLEX #6 tab benzonatate [Tessalon Perles] 100 mg PO TID PRN #10 cap 12/18/18 cholecalciferol (vitamin D3) unit 12/18/18 [Vitamin D3] citalopram [Celexa] 10 mg PO DAILY 12/18/18 12/18/18 rosuvastatin [Crestor] 20 mg PO DAILY 12/18/18 12/18/18 vitamin [id number] acid nilo SUBLINGUAL 12/18/18 Previous Rx's Medication Instructions Recorded albuterol sulfate [Proventil HFA] 2 puff IH Q6H PRN #8 gm 12/18/18 azithromycin See Rx Instructions .ROUTE 12/18/18 .COMPLEX #6 tab benzonatate [Tessalon Perles] 100 mg PO TID PRN #10 cap 12/18/18 Allergies Allergy/AdvReac Type Severity Reaction Status Date / Time oxycodone [From Percocet] AdvReac Intermediate Nausea Unverified 05/03/18 09:14 General Stated Complaint: RespSymp MINA: 4 Review of Systems All systems reviewed & are unremarkable except as noted in HPI and below Constitutional Constitutional: Denies chills, Denies fatigue, Denies fever(s) and Reports headache(s) ENT Ears, Nose, Mouth, and Throat: Denies vertigo, Denies dizziness, Denies ear discharge, Reports otalgia, Reports headache(s), Reports nasal congestion, Reports post nasal drip, Reports sinus pain, Reports sinus pressure and Reports sore throat Cardiovascular Cardiovascular: Denies dyspnea on exertion Respiratory Respiratory: Reports cough, Denies dyspnea on exertion and Reports wheezing Genitourinary Genitourinary: Denies dysuria and Denies urinary urgency Neurologic Neurologic: Denies vertigo, Denies dizziness and Reports headache(s) Endocrine Endocrine: Denies fatigue Allergic/Immunologic Allergic/Immunologic: Reports wheezing [facility] Medical History Anxiety (Chronic) Depression (Chronic) Lumbar disc herniation (Acute) Social History Smoking/Tobacco Use Status: Current every day Alcohol Intake: current Alcohol Intake frequency: a few times a month Drug use: Never Substance use type: does not use Do you feel safe at home: Yes Do you feel safe in your relationship?: Yes Exam Narrative Exam Narrative: CONST: Healthy appearing patient, in no acute distress. Well hydrated. Alert and alert. HENMT: Head nomocephalic, normal to inspection. Atraumatic. Hearing grossly normal. Mild effusion in the right ear, minimal in the left. Mild erythema of the TMs bilaterally. Mild pharyngeal erythema without obvious uvula involvement. No exudates. EYES: General normal appearance. Alignment normal. Eyelids normal. Conjunctiva normal. NECK: Normal visual inspection. FROM. Trachea midline. No Midline tenderness. Cervical lymphadenopathy present CHEST: Normal insepection of the chest. RESP: Normal respiratory effort. Speaking full sentences. No cough. No audible wheezing. No retractions. Breath sounds are full bilaterally however scattered wheezing is present throughout the breath rodriguez. No obvious rales or rhonchi. Bronchospastic cough CARDIO: No JVD. No murmurs or rubs. Regular rate and rhythm. SKIN: Normal. Dry. No rashes. NEURO: Alert and awake. Speech clear. PSYCH: Normal affect. Cooperative. Course Vital Signs Vital signs: Vital Signs Temperature 36.6 C 12/18/18 13:12 Pulse 88 12/18/18 13:12 Respiratory Rate 18 12/18/18 13:12 Pulse Oximetry 94 L 12/18/18 13:12 Temperature 36.6 C 12/18/18 13:12 Pulse 64 12/18/18 14:06 Respiratory Rate 16 12/18/18 14:06 Respiratory Effort 12/18/18 13:29 Respiratory Depth Normal 12/18/18 13:29 Blood Pressure Position Supine 12/18/18 13:12 Pulse Oximetry 93 L 12/18/18 14:06 Oxygen Delivery Method Room Air 12/18/18 13:55 Oxygen Flow Rate 0 12/18/18 13:55 Pain Level 0 12/18/18 13:12
== END 2018-12-18 14:27 | disposition home or self-care (01) ==
PROVIDERS: Emergency Provider Physician Assistant; PCP Nurse Practitioner
DX: J06.9 Acute upper respiratory infection, unspecified (principal); J20.9 Acute bronchitis, unspecified
CPT/HCPCS: 94640; 99283; J7620

== ENCOUNTER 2021-07-15 22:55 | Emergency (ER) | payer BC, SELFPAY ==
[2021-07-15] VITALS (17 sets, daily range): BP systolic 122–134; BP diastolic 73–94; PULSE 53–72; RESP 10–23; TEMP 36.7; O2SAT 92–98
--- NOTE | 2021-07-15 22:45 | RT.EKG_ITS ---
APPROVED REPORT Exam: Resting ECG Reason for Exam: chest pain Patient Location: E HR:75 bpm ECG Measurements Heart Rate 75 AXIS MT 147 P 103 QRSd 78 QRS 113 QT 406 T 133 QTc 454 Conclusion Right and left arm electrode reversal, interpretation assumes no reversal Sinus rhythm...normal P axis, V-rate 60- 99 Probable left atrial enlargement...P >50mS, <-0.10mV V1 Right axis deviation...QRS axis (100,269) Repol abnrm suggests ischemia, diffuse leads...ST-T neg, ant/lat/inf Physician: Rate 75, no significant ST elevations or depressions. Inverted T wave present in V1. No STEMI, prior EKG from 05/03/2018 demonstrates previously inverted T waves, in V1.
--- NOTE | 2021-07-15 23:00 | DI.RAD_ITS ---
Exam(s) XR PORTABLE CHEST AP EXAM: XR PORTABLE CHEST AP CLINICAL HISTORY: central chest heavy. TECHNIQUE: 2D digital imaging was performed. COMPARISON: CR ABD FLAT UPRIGHT PA CHEST from 03/15/2008 FINDINGS: LUNGS: Clear. No pleural abnormality seen. HEART: Normal. MEDIASTINUM: Normal. OTHER FINDINGS: None. IMPRESSION: No acute pulmonary findings. DATA REPOSITORY: RADIATION DOSE DELIVERED: Total DLP
[2021-07-15] MEDS: Aspirin 81 MG CHEW 324 MG CH (23:19)
[2021-07-15] MEDS: Normal Saline 500 ML IV (23:20)
--- NOTE | 2021-07-15 23:33 | ED.GENADUL_ITS ---
Discharge Plan Disposition Patient Disposition: HOME Condition: Good Discharge Details Clinical Impression: Chest pain, Stress at work Primary Care Provider: Jennifer Thurman ED Provider: Javier Campa Home Meds and New Rx's Prescriptions: Continued sertraline [Zoloft] 50 mg Tablet 1 tab PO DAILY citalopram [Celexa] 10 mg Tablet 10 mg PO DAILY cholecalciferol (vitamin D3) [Vitamin D3] 1,000 unit Capsule rosuvastatin [Crestor] 10 mg Tablet 20 mg PO DAILY vitamin K55-iumtr acid 1,000-400 mcg Lozenge SUBLINGUAL azithromycin 250 mg tablet See Rx Instructions .ROUTE .COMPLEX Qty: 6 0RF Rx Instructions: take 500 mg today (day 1), then 250 mg for 4 days (days 2-5) albuterol sulfate [Proventil HFA] 90 mcg/actuation HFA aerosol inhaler 2 puff IH Q6H PRN (Reason: shortness of breath or wheezing) Qty: 8 0RF benzonatate [Tessalon Perles] 100 mg capsule 100 mg PO TID PRN (Reason: cough) Qty: 10 0RF Discharge Instructions Instructions: Chest Pain (ED) Additional Instructions: At this time your work-up is very reassuring. Your labs, EKG, troponin, shows no evidence of significant cardiac abnormality. There is no signs of significant heart strain. There is no evidence of blood clot. Although this work-up was reassuring, you still do have risk factors that need further management on an outpatient basis. Please follow-up closely with your primary care provider to discuss further stress testing on an outpatient basis. If you notice any worsening of your symptoms, or any new symptoms such as vomiting, diarrhea, fever, chills, shortness of breath, chest pain, numbness, weakness, or fainting , please return immediately to the emergency department for reevaluation. Please follow up with your primary care provider as soon as possible for reassessment and reevaluation. As always, it was a pleasure participating in your medical care today. Referrals: Jennifer Thurman [Primary Care Provider] - Medical Decision Making This is a pleasant 55-year-old female with a past medical history of high cholesterol (for which she no longer takes her cholesterol medication), tobacco use, reactive airway disease, a family history of cardiac disease, who presents today for chest pressure. Patient states that for the last few days she has been feeling slightly out of it, she has had a notable increase of stress at work and at home. She states that this has been climaxing as of late. Patient states that for the last 3 to 4 hours her symptoms notably worsened, and she developed some shortness of breath and heaviness in the chest area. She denies any pleuritic chest pain. They did just travel down to [place] in a car trip, but denies any long flights recently. She denies any ripping or tearing sensation. The pain is somewhat between her shoulder blades. She denies any syncope, fever or chills. She does not use oral contraceptives, she denies any history of blood clots. She denies a history of previous cardiac disease. No other complaints at this time. No other modifying factors. Physical exam is unremarkable. No calf tenderness, vital signs notably stable. Bedside limited cardiac ultrasound was performed, no evidence of pericardial ef fusion. No evidence of altered contractility or significant wall motion abnormality on limited bedside echo. Ejection fraction appears around 65%. Patient is very concerned that her symptoms are secondary to anxiety, and states that she has had a panic attack before that is felt very similar to this. Differential at this time does include cardiac etiology/ACS secondary to her risk factors, anxiety, cardiac strain/CHF, and GERD. PE less likely but on the differential. We will evaluate for these concerning etiologies, given full dose aspirin, gently rehydrate, monitor closely and reassess. 3 AM Have laboratory work-up has returned normal, minimal white count, no bandemia. D-dimer is normal. Electrolytes normal, renal function normal, proBNP normal showing no signs of heart strain. Troponin normal on initial, and on delta troponin. Lipase normal. Repeat EKG unchanged and stable. Symptoms inconsistent with ACS. Patient feels extremely well, she has no chest pain whatsoever. She feels well and would like to go home. Patient suspects that this is likely secondary to anxiety, and that may certainly be a component. At this time the patient's heart score is in the low risk category, she is stable for discharge but does need close follow-up. I discussed this with her. She will follow up closely with PCP. Discussed red flags for which to return. I have extensively reviewed the treatment plan and discharge instructions with the patient. I have addressed all patient concerns at this time. The patient was made aware of what symptoms to monitor for that would warrant a return to the emergency department. Discussed the plan with the patient, they demonstrate verbal understanding and agreement with our assessment and plan at this time. The documentation in this chart was dictated using [employer] dictation software. Please excuse any dictation errors. EKG 23: 04 Rate 75, no significant ST elevations or depressions. Inverted T wave present in V1. No STEMI, prior EKG from 05/03/2018 demonstrates previously inverted T waves, in V1. HPI General Date/Time Provider Initiated Documentation: 07/15/21 23:12 . HPI Narrative: This is a pleasant 55-year-old female with a past medical history of high cholesterol (for which she no longer takes her cholesterol medication), tobacco use, reactive airway disease, a family history of cardiac disease, who presents today for chest pressure. Patient states that for the last few days she has been feeling slightly out of it, she has had a notable increase of stress at work and at home. She states that this has been climaxing as of late. Patient states that for the last 3 to 4 hours her symptoms notably worsened, and she developed some shortness of breath and heaviness in the chest area. She denies any pleuritic chest pain. They did just travel down to [place] in a car trip, but denies any long flights recently. She denies any ripping or tearing sensation. The pain is somewhat between her shoulder blades. She denies any syncope, fever or chills. She does not use oral contraceptives, she denies any history of blood clots. She denies a history of previous cardiac disease. No other complaints at this time. No other modifying factors. Related Data Home Medications Medication Instructions Recorded Confirmed sertraline 50 mg tablet (Zoloft) 1 tab PO DAILY 04/06/18 12/18/18 albuterol sulfate 90 mcg/actuation 2 puff inhalation Q6H PRN 12/18/18 aerosol inhaler (Proventil HFA) shortness of breath or wheezing #8 grams azithromycin 250 mg tablet See Rx Instructions PO .COMPLEX #6 12/18/18 tabs benzonatate 100 mg capsule 100 mg PO TID PRN cough #10 caps 12/18/18 (Carla So) cholecalciferol (vitamin D3) 25 unit 12/18/18 mcg (1,000 unit) capsule (Vitamin D3) citalopram 10 mg tablet (Celexa) 10 mg PO DAILY 12/18/18 12/18/18 rosuvastatin 10 mg tablet (Crestor) 20 mg PO DAILY 12/18/18 12/18/18 vitamin B12 1,000 mcg-folic acid nilo sublingual 12/18/18 400 mcg sublingual lozenge Previous Rx's Medication Instructions Recorded albuterol sulfate 90 mcg/actuation 2 puff inhalation Q6H PRN 12/18/18 aerosol inhaler (Proventil HFA) shortness of breath or wheezing #8 grams azithromycin 250 mg tablet See Rx Instructions PO .COMPLEX #6 12/18/18 tabs benzonatate 100 mg capsule 100 mg PO TID PRN cough #10 caps 12/18/18 (Carla So) Allergies Allergy/AdvReac Type Severity Reaction Status Date / Time hepatitis B virus vaccine Allergy Unverified 07/15/21 23:07 tetracycline Allergy Unverified 07/15/21 23:07 oxycodone [From Percocet] AdvReac Intermediate Nausea Unverified 05/03/18 09:14 General Stated Complaint: Chest Pain MINA: 2 Review of Systems All systems reviewed & are unremarkable except as noted in HPI and below PFSH All Active Problems Chest pain (Acute) Stress at work (Acute) Medical History (Updated 07/16/21 @ 02:45 by Javier Campa DO) Anxiety Depression Lumbar disc herniation Surgical History H/O shoulder surgery Social History Smoking/Tobacco Use Status: Current every day Smoking risk assessment performed?: Yes Alcohol Intake: current Alcohol Intake frequency: a few times a month Drug use: Never Substance use type: does not use Do you feel safe at home: Yes Do you feel safe in your relationship?: Yes Exam Narrative Exam Narrative: 1.Const: Well-nourished, Well-developed, appearing stated age 2.Eyes: PERRL, no conjunctival injection, and symmetrical lids. 3.ENT: Atraumatic external nose and ears. Moist MM. Neck: Symmetric, trachea midline, No thyromegaly. 4.CVS: +S1/S2, No murmurs or gallops. Peripheral pulses 2+ and equal in all extremities. Brisk capillary refill in all extremities. Radial pulses equal bilaterally. 5.RESP: Unlabored respiratory effort. Clear to auscultation bilaterally. No wheezes rales or rhonchi 6.GI: Soft, Nontender/Nondistended, No hepatosplenomegaly. No guarding or rebound. 7.MSK: Normocephalic/Atraumatic, Extremities w/o deformity or ttp No cyanosis or clubbing, Normal movement of all extremities, no calf tenderness. 8.Skin: Warm, Dry. No rashes or lesions. 9.Neuro: cloud administrator II-XII grossly intact. Sensation grossly intact, no focal neurologic deficits. 10.Psych: (AAO) x3. Appropriate mood and affect Course Vital Signs Vital signs: Vital Signs Temperature 36.7 C 07/15/21 22:58 Temperature 36.7 C 07/15/21 22:58 Temperature Source Skin 07/15/21 22:58 Respiratory Rate 18 07/15/21 23:03 Respiratory Effort Non-Labored 07/15/21 23:03 Respiratory Depth Normal 07/15/21 23:03 Respiratory Pattern Normal 07/15/21 23:03
[2021-07-15 23:36] LABS: Abs Immature Grans 0.02 10^3/uL (0.0-0.06); Absolute Basophil Count 0.08 10^3/uL (0.0-0.2); Absolute Eosinophil Count 0.13 10^3/uL (0.0-0.7); Absolute Lymphocyte Count 4.49 10^3/uL (1.2-3.4); Absolute Monocyte Count 0.96 10^3/uL (0.1-0.8); Absolute Neutrophil Count 6.91 10^3/uL (1.2-6.7); Basophils % 0.6; HCT 46.3 % (36.0-46.0); Immature Grans % 0.2; Lymphocytes % 35.7; MCH 30.8 pg (27.0-33.0); MCHC 32.4 % (32.0-36.0); MCV 95 fL (80-95); MPV 10.6 fL (8.0-11.0); Monocytes % 7.6; Neutrophils % 54.9; Platelet Count 355 10^3/uL (130-400); RBC 4.87 10^6/uL (3.93-5.22); RDW 12.3 % (11.7-14.6); RDW-SD 43.4 fL; WBC 12.58 10^3/uL (4.4-10.8)
[2021-07-15 23:50] LABS: ALT 20 U/L (14-59); AST 11 U/L (15-37); Alkaline Phosphatase 81 U/L (46-116); Anion Gap 9.2 mmol/L (3-11); BUN 15 mg/dL (7-18); Bilirubin, Total 0.4 mg/dL (0.2-1.0); CO2 25.8 mmol/L (21.0-32.0); CREATININE 0.9 mg/dL (0.55-1.02); Calcium 9.1 mg/dL (8.5-10.1); Chloride 106 mmol/L (98-107); Glucose 110 mg/dL (74-106); Lipase 106 U/L (73-393); NT-proBNP 24 pg/mL (<300); Potassium 4.1 mmol/L (3.5-5.1); Sodium 141 mmol/L (136-145); Total Protein 7.2 g/dL (6.4-8.2); Troponin I < 50 ng/L (<or=60)
[2021-07-16] VITALS (7 sets, daily range): BP systolic 109–114; BP diastolic 67–68; PULSE 51–59; RESP 12–16; O2SAT 95–96
[2021-07-16] LABS: D-Dimer 322 ng/mlFEU (<500)
--- NOTE | 2021-07-16 00:42 | DI.VRAD_ITS ---
PROCEDURE INFORMATION: Exam: XR Chest Exam date and time: 07/15/2021 11:31 PM Age: 55 years old Clinical indication: Other: Central chest heavy TECHNIQUE: Imaging protocol: XR of the chest. Views: 1 view. COMPARISON: CT thorax abdomen CTA 04/06/2018 6:14 AM FINDINGS: Lungs: Unremarkable. No consolidation. Pleural spaces: Unremarkable. No pleural effusion. No pneumothorax. Heart/Mediastinum: Unremarkable. No cardiomegaly. Bones/joints: Unremarkable. IMPRESSION: No acute findings. Dictated and Authenticated by: Valdo Mckeon MD. Ordering:SHAILESH Herrera MD
--- NOTE | 2021-07-16 01:00 | RT.EKG_ITS ---
APPROVED REPORT Exam: Resting ECG Reason for Exam: chest pain Patient Location: E HR:55 bpm ECG Measurements Heart Rate 55 AXIS IL 131 P 61 QRSd 78 QRS 76 QT 429 T 69 QTc 410 Conclusion Sinus bradycardia...rate< 60 Physician: no stemi. no significant st elevation. unchanged
[2021-07-16 02:23] LABS: Troponin I < 50 ng/L (<or=60)
== END 2021-07-16 02:54 | disposition home or self-care (01) ==
PROVIDERS: Emergency Provider Student in an Organized Health Care Education/Training Program; PCP Nurse Practitioner
DX: R07.9 Chest pain, unspecified (principal); R06.02 Shortness of breath; R07.89 Other chest pain; Z56.6 Other physical and mental strain related to work
CPT/HCPCS: 80053; 83690; 93005; 96360; 99284; 71045; 83880; 84484; 85025; 85379; 93010

== ENCOUNTER 2022-05-01 10:50 | Emergency (ER) | payer BC, SELFPAY ==
--- NOTE | 2022-05-01 10:45 | RT.EKG_ITS ---
APPROVED REPORT Exam: Resting ECG Reason for Exam: left arm pain, jaw pain Patient Location: E HR:67 bpm ECG Measurements Heart Rate 67 AXIS MD 142 P 73 QRSd 76 QRS 70 QT 403 T 64 QTc 426 Conclusion Sinus rhythm...normal P axis, V-rate 60- 99
[2022-05-01 10:54] VITALS: BP 118/89; PULSE 70; PULSE 72; RESP 18; TEMP 36.9; O2SAT 100
[2022-05-01 11:01] VITALS: BP 104/67; PULSE 59; RESP 12; O2SAT 99
[2022-05-01 11:05] LABS: Abs Immature Grans 0.01 10^3/uL (0.0-0.06); Absolute Basophil Count 0.03 10^3/uL (0.0-0.2); Absolute Eosinophil Count 0.07 10^3/uL (0.0-0.7); Absolute Lymphocyte Count 2.14 10^3/uL (1.2-3.4); Absolute Monocyte Count 0.37 10^3/uL (0.1-0.8); Absolute Neutrophil Count 3.44 10^3/uL (1.2-6.7); Basophils % 0.5; Eosinophils % 1.2; HCT 47.5 % (36.0-46.0); HGB 15.7 g/dL (11.2-15.7); Immature Grans % 0.2; Lymphocytes % 35.3; MCH 31.2 pg (27.0-33.0); MCHC 33.1 % (32.0-36.0); MCV 94 fL (80-95); MPV 10.6 fL (8.0-11.0); Monocytes % 6.1; Neutrophils % 56.7; Platelet Count 298 10^3/uL (130-400); RBC 5.03 10^6/uL (3.93-5.22); RDW 12.2 % (11.7-14.6); RDW-SD 42.4 fL; WBC 6.06 10^3/uL (4.4-10.8)
[2022-05-01 11:22] LABS: ALT 26 U/L (14-59); AST 13 U/L (15-37); Albumin 4.2 g/dL (3.4-5.0); Alkaline Phosphatase 87 U/L (46-116); Anion Gap 11.4 mmol/L (3-11); BUN 15 mg/dL (7-18); Bilirubin, Total 0.4 mg/dL (0.2-1.0); CO2 27.6 mmol/L (21.0-32.0); CREATININE 0.9 mg/dL (0.55-1.02); Calcium 9.3 mg/dL (8.5-10.1); Chloride 103 mmol/L (98-107); Glucose 103 mg/dL (74-106); Magnesium 1.9 mg/dL (1.8-2.4); Potassium 4.3 mmol/L (3.5-5.1); Sodium 142 mmol/L (136-145); Total Protein 7.6 g/dL (6.4-8.2); Troponin I < 50 ng/L (<or=60)
--- NOTE | 2022-05-01 11:30 | DI.RAD_ITS ---
Exam(s) XR CHEST 2V PA LATERAL EXAM: XR CHEST 2V PA LATERAL CLINICAL HISTORY: chest pain TECHNIQUE: 2D digital imaging was performed. COMPARISON: No exams were available for comparison FINDINGS: HEART: Normal size. Aorta: Not dilated. PULMONARY VASCULATURE: Normal. LUNGS: Hyperinflated but clear. PLEURAL SPACE: No pleural effusion or pneumothorax. BONE:Unremarkable for age. IMPRESSION: No acute abnormality. DATA REPOSITORY: RADIATION DOSE DELIVERED:
[2022-05-01 11:46] VITALS: BP 101/71; PULSE 58; RESP 13; O2SAT 96
--- NOTE | 2022-05-01 13:15 | RT.EKG_ITS ---
APPROVED REPORT Exam: Resting ECG Reason for Exam: chest pain Patient Location: E HR:56 bpm ECG Measurements Heart Rate 56 AXIS TN 143 P 50 QRSd 77 QRS 68 QT 426 T 68 QTc 410 Conclusion Sinus bradycardia...rate< 60
[2022-05-01 13:48] LABS: Troponin I < 50 ng/L (<or=60)
[2022-05-01 14:21] VITALS: BP 96/66; PULSE 58; RESP 16; O2SAT 96
--- NOTE | 2022-05-03 08:55 | ED.GENADUL_ITS ---
Discharge Plan Disposition Patient Disposition: Home Discharge Details Clinical Impression: Chest pain Primary Care Provider: Jennifer Thurman ED Provider: Coby Hurt Home Meds and New Rx's Prescriptions: New alprazolam 0.5 mg tablet 0.5 mg PO BID PRNQty: 10 0RF Continued sertraline [Zoloft] 50 mg Tablet 1 tab PO DAILY citalopram [Celexa] 10 mg Tablet 10 mg PO DAILY cholecalciferol (vitamin D3) [Vitamin D3] 1,000 unit Capsule rosuvastatin [Crestor] 10 mg Tablet 20 mg PO DAILY vitamin T54-tfbko acid 1,000-400 mcg Lozenge SUBLINGUAL azithromycin 250 mg tablet See Rx Instructions .ROUTE .COMPLEX Qty: 6 0RF Rx Instructions: take 500 mg today (day 1), then 250 mg for 4 days (days 2-5) albuterol sulfate [Proventil HFA] 90 mcg/actuation HFA aerosol inhaler 2 puff IH Q6H PRN (Reason: shortness of breath or wheezing) Qty: 8 0RF benzonatate [Tessalon Perles] 100 mg capsule 100 mg PO TID PRN (Reason: cough) Qty: 10 0RF Discharge Instructions Instructions: Chest Pain (ED) Additional Instructions: Please follow-up with your primary care physician I recommend calling them to discuss regular dosing of your alprazolam as I think it is appropriate, I would continue [id number] problem as prescribed and increase to twice daily while awake Please follow-up with your doctor regarding your chest discomfort, while I do not suspect this is cardiac in nature, I do recommend follow-up and outpatient stress test Please return immediately should you have new or worsening complaints Stand Alone Forms: Work Release Discharge Data Discharge Date/Time-TO BE ENTERED AT DEPARTURE: 05/01/22 14:22 Medical Decision Making This 56-year-old female presents with left arm and jaw pain which started or was likely precipitated per patient with panic attack, alleviated now after taking half a tablet of Xanax Has 2 negative troponins and EKGs, chest x-ray and diagnostic labs do not show evidence of acute abnormality, no clinical signs and symptoms consistent with pulmonary embolism, no hypoxia, no tachypnea, no tachycardia, feeling marked improvement and remains comfortable throughout encounter without return of discomfort Given work note Close outpatient reassessment primary care physician recommended Return precautions reviewed and patient expressed understanding HPI General Date/Time Provider Initiated Documentation: 05/01/22 11:21 . HPI Narrative: This 56-year-old female presents with left arm and jaw pain. States she has been under significant stressors at home. Denies any shortness of breath or pleuritic pain associated. Denies any calf pain or swelling. Denies any recent flights, surgeries, long drives. Denies any nausea or vomiting. Denies tobacco abuse, illicit drug use, or any history of coagulopathy. Does report history of hyperlipidemia, denies hypertension history. Denies fever or chills. States she has had similar episodes in the past with anxiety, denies any history of early cardiac or coronary artery disease in family members. Has had a stress test before but has been several years per patient. States the pain is alleviated now after taking a Xanax prior to arrival Related Data Home Medications Medication Instructions Recorded Confirmed sertraline 50 mg tablet (Zoloft) 1 tab PO DAILY 04/06/18 05/01/22 albuterol sulfate 90 mcg/actuation 2 puff inhalation Q6H PRN 12/18/18 aerosol inhaler (Proventil HFA) shortness of breath or wheezing #8 grams azithromycin 250 mg tablet See Rx Instructions PO .COMPLEX #6 12/18/18 tabs benzonatate 100 mg capsule 100 mg PO TID PRN cough #10 caps 12/18/18 (Carla So) cholecalciferol (vitamin D3) 25 unit 12/18/18 mcg (1,000 unit) capsule (Vitamin D3) citalopram 10 mg tablet (Celexa) 10 mg PO DAILY 12/18/18 05/01/22 rosuvastatin 10 mg tablet (Crestor) 20 mg PO DAILY 12/18/18 05/01/22 vitamin B12 1,000 mcg-folic acid nilo sublingual 12/18/18 400 mcg sublingual lozenge alprazolam 0.5 mg tablet 0.5 mg PO BID PRN #10 tabs 05/01/22 Previous Rx's Medication Instructions Recorded albuterol sulfate 90 mcg/actuation 2 puff inhalation Q6H PRN 12/18/18 aerosol inhaler (Proventil HFA) shortness of breath or wheezing #8 grams azithromycin 250 mg tablet See Rx Instructions PO .COMPLEX #6 12/18/18 tabs benzonatate 100 mg capsule 100 mg PO TID PRN cough #10 caps 12/18/18 (Vidawilbertocalderon Bernieisaac) alprazolam 0.5 mg tablet 0.5 mg PO BID PRN #10 tabs 05/01/22 Allergies Allergy/AdvReac Type Severity Reaction Status Date / Time hepatitis B virus vaccine Allergy Unverified 05/01/22 10:52 tetracycline Allergy Unverified 05/01/22 10:52 oxycodone [From Percocet] AdvReac Intermediate Nausea Unverified 05/01/22 10:52 General Stated Complaint: Chest Pain MINA: 3 PFSH All Active Problems (Updated 05/01/22 @ 14:07 by JUANI Cornell) Chest pain (Acute) Medical History (Updated 05/01/22 @ 14:07 by JUANI Cornell) Anxiety Depression Lumbar disc herniation Surgical History H/O shoulder surgery Social History Smoking/Tobacco Use Status: Current every day Tobacco Type: cigarettes Smoking risk assessment performed?: Yes Alcohol Intake: current Alcohol Intake frequency: a few times a month Drug use: Never Substance use type: does not use Do you feel safe at home: Yes Do you feel safe in your relationship?: Yes Exam Narrative Exam Narrative: Patient is alert, oriented, calm in demeanor at time of assessment, pupils equal round reactive to light and accommodation, no carotid bruit, no thyromegaly, lungs clear to auscultation bilaterally, rate rhythm regular cardiovascularly, no abdominal tenderness, fully alert and oriented, no calf swelling or tenderness, distal pulses intact, no reported suicidal ideation Course Vital Signs Vital signs: Vital Signs Temperature 36.9 C 05/01/22 10:54 Pulse 70 05/01/22 10:54 Respiratory Rate 18 05/01/22 10:54 Blood Pressure 118/89 05/01/22 10:54 Pulse Oximetry 100 05/01/22 10:54 Temperature 36.9 C 05/01/22 10:54 Temperature Source Oral 05/01/22 10:54 Pulse 58 L 05/01/22 14:21 Pulse 58 L 05/01/22 11:46 Respiratory Rate 16 05/01/22 14:21 Respiratory Effort Normal 05/01/22 11:46 Respiratory Depth Normal 05/01/22 11:46 Respiratory Pattern Normal 05/01/22 11:46 Blood Pressure 96/66 L 05/01/22 14:21 Blood Pressure Mean 78 05/01/22 11:46 Pulse Oximetry 96 05/01/22 14:21 Oxygen Delivery Method Room Air 05/01/22 10:54 Oxygen Flow Rate 0 05/01/22 10:54 Lab/Test Results Lab/Test Results: Laboratory Tests Range/Units 05/01/22 05/01/22 05/01/22 10:55 10:55 13:25 WBC (4.4-10.8) 10^3/uL 6.06 RBC (3.93-5.22) 10^6/uL 5.03 Hgb (11.2-15.7) g/dL 15.7 Hct (36.0-46.0) % 47.5 H MCV (80-95) fL 94 MCH (27.0-33.0) pg 31.2 MCHC (32.0-36.0) % 33.1 RDW (11.7-14.6) % 12.2 Plt Count (130-400) 10^3/uL 298 MPV (8.0-11.0) fL 10.6 Immature Gran % 0.2 Neutrophils % 56.7 Lymphocytes % 35.3 Monocytes % 6.1 Eosinophils % 1.2 Basophils % 0.5 Nucleated RBC % (0.0-0.3) % 0.0 Absolute Neutrophils (1.2-6.7) 10^3/uL 3.44 Absolute Lymphocytes (1.2-3.4) 10^3/uL 2.14 Absolute Monocytes (0.1-0.8) 10^3/uL 0.37 Absolute Eosinophils (0.0-0.7) 10^3/uL 0.07 Absolute Basophils (0.0-0.2) 10^3/uL 0.03 Sodium (136-145) mmol/L 142 Potassium (3.5-5.1) mmol/L 4.3 Chloride (98-107) mmol/L 103 Carbon Dioxide (21.0-32.0) mmol/L 27.6 Anion Gap (3-11) mmol/L 11.4 H BUN (7-18) mg/dL 15 Creatinine (0.55-1.02) mg/dL 0.9 Est GFR (CKD-EPI 2020) (mL/min/1.73m2) 74.10 Glucose (74-106) mg/dL 103 Calcium (8.5-10.1) mg/dL 9.3 Magnesium (1.8-2.4) mg/dL 1.9 Total Bilirubin (0.2-1.0) mg/dL 0.4 AST (15-37) U/L 13 L ALT (14-59) U/L 26 Alkaline Phosphatase (46-116) U/L 87 Troponin I (<or=60) ng/L < 50 < 50 Total Protein (6.4-8.2) g/dL 7.6 Albumin (3.4-5.0) g/dL 4.2
== END 2022-05-01 14:22 | disposition home or self-care (01) ==
PROVIDERS: Emergency Provider Physician Assistant; PCP Nurse Practitioner
DX: R07.89 Other chest pain (principal); M79.602 Pain in left arm; R68.84 Jaw pain
CPT/HCPCS: 80053; 93005; 99283; 71046; 83735; 84484; 85025; 93010

== ENCOUNTER → 2023-09-07 02:42 | Outpatient (CLI) | payer BC, SELFPAY ==
--- NOTE | 2023-09-07 | DI.MRI_ITS ---
Exam(s) MR UPPER JOINT LT WO EXAM: MR UPPER JOINT LT WO CLINICAL HISTORY: M25.512 Acute pain of left shoulder TECHNIQUE: Multiplanar multisequence MRI of the shoulder was performed. COMPARISON: No plain films of the shoulder available at the time this MRI interpretation. FINDINGS: MARROW:There is no evidence of fracture, Hill-Sachs deformity, nor ominous osseous lesions. There is evidence of previous rotator cuff surgery. GLENOHUMERAL JOINT: There are osteoarthritic degenerative changes. Some articular cartilage loss. A lso small-moderate size osteophyte on the inferior articular surface of the humeral head. No degener ative subarticular cysts noted in the osseous glenoid. No evidence of prominent joint effusion or lo ose intra-articular bodies. ROTATOR CUFF MECHANISM: AC JOINT/ACROMIUM: AC joint reveals minimal degenerative changes. No prominent impingement at this l evel nor at the level of the acromium There is no evidence of os acromiale. Visualized clavicle appears intact. Supraspinatus: Exhibits some mild tendinitis signal as well as some irregularity on the articular tigist face side consistent with partial-thickness tearing. No retraction of the musculotendinous junction. There is small amount of fluid in the subacromial bursa region. Infraspinatus: Mild tendinitis signal. No evidence of tear nor atrophy. Teres Minor: Intact. No evidence of tear nor muscle atrophy. Subscapularis/anterior cuff: Intact. No abnormal signal at the level of the multipennate insertional fibers. No significant tear nor atrophy. BICEPS TENDON: Exhibits normal position within the intertubercular groove. Attenuated intra-articular aspect.. One of the anchor channels in the humeral head is at the lesser tuberosity level and may be related to biceps tenodesis at this level. LABRUM: Superior labrum is blunted. Posterior labrum exhibits chronic type tearing. Anterior labrum exhibits attenuation and some tearing. Inferior labrum also exhibits some regularity. Some thinnin g of the inferior glenohumeral ligament also noted. IMPRESSION: 1. Evidence of previous rotator cuff surgery and possible high-level biceps tenodesis. 2. Suspect partial thickness tearing of the supraspinatus. There is some fluid in the overlying suba cromial bursa space which is probably related to an element of accompanying bursitis. No tears evide nt in the infraspinatus and subscapularis, nor in the teres minor. 3. Although the biceps tendon appears intact within the intertubercular groove, the intra-articular a spect is attenuated. Possible high-level biceps tenodesis. 4. Multilevel labral fraying-attenuation and moderate osteoarthritic degenerative changes in the gle nohumeral joint. No large joint effusion or intra-articular loose bodies evident. DATA REPOSITORY:
== END ==
PROVIDERS: PCP Nurse Practitioner; Visit Provider Physician Assistant
DX: M25.512 Pain in left shoulder (principal); M19.012 Primary osteoarthritis, left shoulder
CPT/HCPCS: 73221